=== PATIENT | female | born 1985 | race African-American/Black ===

== ENCOUNTER 2024-10-28 11:20 | Day surgery (SDC) | payer OTHER, SELFPAY ==
--- NOTE | 2024-10-28 | PATH_ITS ---
[facility] Accession Number: [id number] No. of containers..03 Tissue . 01 Material submitted: . PART A: duodenum - DUODENUM PART B: stomach - ANTRUM PART C: colon - RANDOM COLON . 01 Diagnosis: A. DUODENUM, BIOPSY: Duodenal mucosa with no diagnostic abnormality. Negative for active inflammation, features of sprue, dysplasia, or malignancy. . B. GASTRIC ANTRUM, BIOPSY: Gastric antral mucosa with mild chronic inflammation. Negative for Helicobacter organisms by immunohistochemistry. Negative for intestinal metaplasia. Negative for dysplasia or malignancy. . C. RANDOM COLON, BIOPSY: Colonic mucosa with no diagnostic abnormality. Negative for active, chronic, and microscopic colitis. Negative for dysplasia and malignancy. . MRV 11/01/2024 1552 Local . 01 Electronically signed: . Alan Dexter MD, PhD, Pathologist NPI- [id number] . 01 Gross description: . A. Received in formalin with two patient identifiers and duodenum biopsy, are three patten soft tissue fragments all measuring 0.3 cm in greatest dimension. Submitted in cassette A1. B. Received in formalin with two patient identifiers and antrum, are two patten soft tissue fragments 0.2 to 0.3 cm in greatest dimension. Submitted in cassette B1. C. Received in formalin with two patient identifiers and random colon biopsies, are two patten soft tissue fragments 0.2 to 0.3 cm in greatest dimension. Submitted in cassette C1. ([id number]) /LATISHA 10/31/2024 1044 Local . 01 Microscopic: . B. An immunohistochemical stain was performed to evaluate for Helicobacter organisms and is negative. The control stain showed appropriate reactivity. . * This test was developed and the performance characteristics were validated by [employer]. It has not been cleared or approved by the [place]. Food and Drug Administration. . 01 Pathologist provided ICD-10: K92.0, K29.70, R19.4 . 01 CPT . 227899, 237124, 427830, Q02690 Specimen Comment: A courtesy copy of this report has been sent to [phone] Performed at: [address] [facility] [address], [place], [place] [id number] MD Sarwat Unger MD Phone: [phone]
--- NOTE | 2024-10-28 11:55 | PM.HP.1 ---
History of Present Illness History of Present Illness Date Patient Seen: 10/28/24 Time Patient Seen: 11:55 Chief complaint: EGD & Colonoscopy Narrative: 39 yo female here for EGD/colon. I reviewed the recent clinic note by Dr Carnes. No changes. 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 She has diarrhea alternating with constipation. She had some bleeding in the spring as well. Diagnostic EGD and colon are pursued today. Meds Home Medications and Allergies Home Medications Medication Instructions Recorded Confirmed Type bisoprolol fumarate 5 mg tablet 5 mg PO DAILY 10/28/24 10/28/24 History Allergies Allergy/AdvReac Type Severity Reaction Status Date / Time No Known Drug Allergies Allergy Verified 10/28/24 11:36 Review of Systems Review of Systems ROS: Yes All systems reviewed with the patient and are negative except as otherwise documented Exam Const General: cooperative HENMT Head: normal to inspection Eyes General: appearance normal, both eyes and all related structures Neck Neck: normal visual inspection Chest Chest: normal inspection of the chest Resp Effort & Inspection: normal respiratory effort Cardio Rate: regular rate GI Inspection: normal to inspection Skin General: no rashes or lesions noted Neuro General: patient alert and patient awake Extrem General: normal to inspection and no pedal edema Psych Appearance: grossly normal Assessment & Plan Assessment & Plan narrative: 39-year-old female with refractory GERD, constipation, diarrhea, history of rectal bleeding. Diagnostic EGD and colonoscopy are pursued today. Time-Based Coding :: [TOTAL MINUTES] spent with patient and on the chart (including review of chart, obtaining history, exam, reviewing outside data, placing orders, documenting exam and treatment plan, and counseling patient) on [DATE].
--- NOTE | 2024-10-28 11:57 | PM.PREOP ---
Pre-operative Note Interval Note History & Physical reviewed/Exam performed by Physician: Yes Changes to H&P: No ASA Class (for procedural sedation): II
[2024-10-28 12:12] VITALS: BP 119/83; PULSE 93; RESP 16; TEMP 36.2; O2SAT 100
--- NOTE | 2024-10-28 13:29 | P.OP.EGD&C_ITS ---
Operative Date/Time/Diagnoses Date of procedure: 10/28/24 Time of procedure: 13:29 Pre-op diagnosis: Refractory reflux, diarrhea, constipation, remote rectal bleeding Post-op diagnosis: same Procedure & Clinicians Study performed: EGD with biopsies and colonoscopy with biopsies. Same procedure as scheduled: Yes Indications: Refractory reflux, diarrhea, constipation, remote rectal bleeding Surgeon: Dl Farooq Procedure Notes SCOAP/Timeout: Done Procedure in detail: After the risks and benefits were explained, written and verbal informed consent was obtained. The patient was brought into the procedure room and placed into the left lateral decubitus position. Please see anesthesia note for sedation details. The scope was introduced into the mouth through the bite block and advanced under direct visualization to the 2nd portion of the duodenum. The scope was slowly withdrawn carefully examining the mucosa for any defects or lesions. Retroflexed views were accomplished in the stomach. The stomach was decompressed, the scope was then removed from the patient who tolerated the procedure well. The patient was then turned around. A digital rectal examination was accomplished. The scope was introduced into the rectum and advanced to the cecum as identified by the appendiceal orifice and ileocecal valve. The terminal ileum was interrogated. The scope was then slowly withdrawn to carefully examine the mucosa for any defects or lesions. Multiple direct views were made through the dentate line and retroflexed views were accomplished. Colon was decompressed and then the scope was removed from the patient who tolerated the procedure well. Pediatric colonoscope Bowel prep adequate Scope withdrawal time: 13 minutes Sedation minutes: 32 Complications: none Impression: 1. Duodenal: This was visually normal from the bulb through to the 2nd portion. Biopsies were taken from D2 for exclusion of celiac. 2. Stomach: No ulcers. No outlet obstruction. No mass lesions. Mild gastropathy was appreciated in the antrum. Biopsies were taken from this location for exclusion of H pylori infection. Retroflexed views of the LES revealed a Hill valve grade 3. Subtle sliding hiatal hernia was noted. 3. Esophagus: The squamocolumnar junction correlated with the top of the gastric folds. GE junction was at approximately 34 cm from the incisors. No evidence of any acute erosive esophagitis no stricturing no mass lesions. The esophagus was fairly unremarkable. 4. Terminal ileum: This appeared visually normal. 5. Colon: No sign of procto colitis throughout. No significant polyps or mass lesions throughout. Random colonic biopsies were taken for exclusion of mi croscopic colitis. Endoscopic diagnosis 1. Small sliding hiatal hernia 2. Mild gastropathy 3. Otherwise visually unremarkable EGD 4. Visually normal colonoscopy and terminal ileoscopy with random biopsies pending Post-procedure Plan for aftercare: 1. Await histology. 2. Alter the way you take your anti-reflux therapy. The omeprazole needs to be taken 30-60 minutes before the 1st and last meal of the day. 3. Follow up GI clinic. Disposition: PACU
[2024-10-28 13:32] VITALS: BP 104/69; PULSE 82; RESP 13; TEMP 36.6; O2SAT 98
[2024-10-28 13:37] VITALS: BP 108/88; PULSE 85; RESP 16; O2SAT 100
[2024-10-28 13:42] VITALS: BP 114/86; PULSE 78; RESP 18; TEMP 36.6; O2SAT 100
[2024-10-28 13:51] VITALS: BP 112/82; PULSE 82; RESP 14; O2SAT 100
== END 2024-10-28 14:04 | disposition home or self-care (01) ==
PROVIDERS: PCP General Practice; Referring Provider Internal Medicine Gastroenterology; Visit Provider Internal Medicine Gastroenterology
PROC: 0DJD8ZZ Inspection of Lower Intestinal Tract, Via Natural or Artificial Opening Endoscopic (ICD-10-PCS; CPT 45378; principal; 2024-10-28 12:00)
PROC: 0DJ08ZZ Inspection of Upper Intestinal Tract, Via Natural or Artificial Opening Endoscopic (ICD-10-PCS; CPT 45380; 2024-10-28 12:00)
DX: K59.00 Constipation, unspecified (principal); R19.7 Diarrhea, unspecified; K21.9 Gastro-esophageal reflux disease without esophagitis; K44.9 Diaphragmatic hernia without obstruction or gangrene; K29.50 Unspecified chronic gastritis without bleeding
CPT/HCPCS: 45380; 43239; J2704

== ENCOUNTER → 2024-11-01 07:44 | Outpatient (CLI) | payer OTHER, SELFPAY ==
--- NOTE | 2024-11-01 07:45 | DI.ECHO.S_ITS ---
[facility] : : [address] : : [place] : : [id number] : : Phone: [phone] Echocardiogram Report + + :Name: REAGAN BROWN Study Date: 11/01/2024 Height: 62 in : :[facility] ReadingLocation: Weight: 195 lb : : Gender: Female BSA: 1.9 m2 : :: 1985 Age: 39 yrs BP: 123/89 mmHg: :Reason For Study: TRICUSPID VALVE REGURGITATION, PULMONARY : :HYPERTENSION : :Ordering Physician: TABATHA CROOK Performed By: Van Ramos : :Referring: TABATHA CROOK : + + Interpretation Summary 1. Normal LV contractility with EF > 55%. No WMA. No LVH. Normal diastolic function. 2. Normal RV contractiliity. 3. Normal chamber sizes. 4. Trace to mild TR with estimated PSAP 27 mmHg. 5. No intracardiac shunts per bubble study. 6. No intracardiac masses/thrombi. 7. No hemodynamically significant pericardial effusion. 8. Low right sided filling pressures. Conclusion: Normal biventricular function without significant valvular abnormalities nor evidence of pulmonary hypertension. Procedure: A two-dimensional transthoracic echocardiogram with color flow and Doppler was performed. A contrast injection of Definity was performed to improve assessment of LV function. A saline contrast injection was performed to assess for cardiac shunting. The study quality was technically good. There is no prior echocardiogram noted for this patient. The patient was in normal sinus rhythm during the exam. Left Ventricle: The left ventricle is normal in size. There is normal left ventricular wall thickness. There is no ventricular septal defect visualized. The ejection fraction is estimated to be 55-60%. There are no focal wall motion abnormalities. Diastolic parameters suggest probable normal left ventricular diastolic function and normal filling pressures. Right Ventricle: The right ventricle is normal in size and function. Atria: The left atrial size is normal. Right atrial size is normal. There is no Doppler evidence for an atrial septal defect. Mitral Valve: The mitral valve leaflets appear normal. There is no evidence of stenosis, fluttering, or prolapse. There is trace mitral regurgitation. Aortic Valve: The aortic valve is trileaflet. The aortic valve opens well. The aortic valve is slightly calcified. No aortic regurgitation is present. Tricuspid Valve: The tricuspid valve leaflets are thin and pliable. There is mild tricuspid regurgitation. The right ventricular systolic pressure is estimated to be at least 27 mmHg based on an estimated right atrial pressure of 3 mm Hg. Pulmonic Valve: The pulmonic valve is not well seen, but is grossly normal. There is no pulmonic valvular regurgitation. Great Vessels: The aortic root is normal size. The dimensions of the ascending aorta are normal. The pulmonary artery is normal size. The IVC is of normal diameter and collapses greater than 50% with a sniff. This suggests a low right atrial pressure of 3 mm Hg. Pericardium/ Pleura There is no pericardial effusion. There is no pleural effusion. MMode/2D Measurements & Calculations LVIDd: 4.3 cm LVOT diam: 1.8 cm LVIDs: 3.2 cm Ao root diam: 2.4 cm FS: 27.2 % asc Aorta Diam: 3.0 cm EPSS: 0.62 cm IVSd: 0.91 cm LVPWd: 0.78 cm LV manuel. diameter/BSA (cm/m^2): 2.3 LV sys. diameter/BSA (cm/m^2): 1.7 LA A2 area: 12.4 cm2 RA long axis: 4.6 cm LA A4 area: 16.1 cm2 RA area: 14.3 cm2 LA length (vol): 5.4 cm RA vol: 37.7 ml LA vol: 31.5 ml RA : 20.0 ml/m2 LA vol index: 16.7 ml/m2 IVC diam: 1.5 cm RVD1 (basal): 3.1 cm RVD2 (mid): 2.6 cm TAPSE: 2.1 cm Doppler Measurements & Calculations Ao V2 max: 167.9 cm/sec MV E max jono: 73.6 cm/sec Ao V2 mean: 118.2 cm/sec MV A max jono: 59.1 cm/sec Ao max P.3 mmHg MV E/A: 1.2 Ao mean P.1 mmHg Med Peak E' Jono: 10.4 cm/sec Ao V2 VTI: 36.5 cm E/E' med: 7.1 Lat Peak E' Jono: 11.5 cm/sec E/E' lat: 6.4 E/e' average: 6.7 MV dec time: 0.20 sec TR max jono: 242.8 cm/sec TR max P.6 mmHg PA V2 max: 74.4 cm/sec PA V2 mean: 48.3 cm/sec PA mean P.1 mmHg PA pr(Accel): 15.6 mmHg Reading Physician:
--- NOTE | 2024-11-01 07:45 | DI.NM.S_ITS ---
PROCEDURE: NM EXERCISE TREADMILL NON NUC COMPARISON: None. INDICATIONS: NONRHUMATIC TRICUSPID VALVE REGURG/PULM HTN FINDINGS: the patient exercised for 9 minutes and 10 seconds reaching 92% of maximum predicted heart rate. Appropriate BP response to exercise. Fair exercise tolerance (9.1METs, OBINNA -2%). No angina, no diagnostic ST changes, and no ectopy during exercise or recovery. IMPRESSION: Low risk, normal treadmill ECG only stress test from inducible ischemia standpoint. Fair exercise tolerance (9.1METS, OBINNA -2%). Dictated by: Jeri Bañuelos MD on 11/01/2024 at 17:16 Approved by: Jeri Bañuelos MD on 11/01/2024 at 17:18
== END ==
LOC: NUCM 07:44
PROVIDERS: PCP General Practice; Referring Provider Internal Medicine; Visit Provider Internal Medicine
DX: I27.20 Pulmonary hypertension, unspecified (principal); I36.1 Nonrheumatic tricuspid (valve) insufficiency
CPT/HCPCS: 93017; C8929; Q9957